=== PATIENT | male | born 1970 | race Caucasian/White ===

== ENCOUNTER 2022-11-04 11:43 | Emergency (ER) | payer SELFPAY ==
[~2022-11-04] VITALS: Ht 182.9 cm; Wt 181.4 kg
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
[2022-11-04] MEDS ORDERED: CYCLOBENZAPRINE 10 MG TABLET PO ONE (12:30)
[2022-11-04] MEDS ORDERED: ACETAMINOPHEN 325 MG TABLET PO ONE (12:30)
[2022-11-04] MEDS ORDERED: TDAP [DIPH/PERTUSSIS/TET] 0.5 ML VIAL IM ONE ×2 (12:30→12:44)
--- NOTE | 2022-11-04 12:32 | NUR ---
NO ACTIVE BLEEDING
[2022-11-04] MEDS ORDERED: ACETAMINOPHEN ES 500 MG TABLET ONE (12:44)
[2022-11-04] MEDS ORDERED: CYCLOBENZAPRINE 10 MG TABLET ONE (12:44)
--- NOTE | 2022-11-04 12:54 | NUR ---
X RAYS DONE AT BED SIDE
--- NOTE | 2022-11-04 13:55 | NUR ---
TO CT SCAN OF HEAD
--- NOTE | 2022-11-04 15:00 | NUR ---
AWAKE AND ALERT NO PAIN INCETION COVERING WITH DERMABAND
[2022-11-04] MEDS ORDERED: IBUP-1953 PO (15:21)
[2022-11-04] MEDS ORDERED: TYL2T PO (15:21)
--- NOTE | 2022-11-04 15:31 | NUR ---
Patient discharged to home in stable condition. Written and verbal after care instructions given. Patient verbalizes understanding of instruction.
[2022-11-04 15:32] VITALS: BP 153/92
== END 2022-11-04 15:31 | disposition home or self-care (01) ==
LOC: ER 11:45
DX: S02.2XXA Fracture of nasal bones, initial encounter for closed fracture (principal); S00.81XA Abrasion of other part of head, initial encounter; M79.642 Pain in left hand; M79.641 Pain in right hand; M79.632 Pain in left forearm; R51.9 Headache, unspecified; I10 Essential (primary) hypertension; V89.2XXA Person injured in unspecified motor-vehicle accident, traffic, initial encounter; Y93.89 Activity, other specified; Y92.411 Interstate highway as the place of occurrence of the external cause; Y99.8 Other external cause status
CPT/HCPCS: 99284; 70450; 90471; 93005; 90715; 73090; 73130 ×2; 70486; A6403